=== PATIENT | male | born 1970 | race Two or more races ===

== ENCOUNTER 2021-03-29 18:01 | Emergency (ER) | payer SELFPAY ==
--- NOTE | 2021-03-29 18:50 | EDM.PDOC ---
ED HPI GENERAL MEDICAL PROBLEM - General Chief Complaint: Cardiovascular Problem Stated Complaint: [facility] Time Seen by Provider: 03/29/21 18:08 Source of Information: Reports: Patient, EMS, Other (Sas Programmer Remote) History Limitations: Reports: Language Barrier - History of Present Illness INITIAL COMMENTS - FREE TEXT/NARRATIVE: Using our soap inspector were able to get in touch with the patient and figure out what was going on. Patient [place] [facility] and speaks only in Portuguese dialect. We had the heel sander rubber on the phone patient was brought in by ambulance after he felt lightheaded and dizzy and nauseated. He checked his blood pressure was elevated and therefore was brought in for evaluation. His blood pressure was somewhat elevated 170 on EMS arrival had an IV started and patient otherwise was not complaining of any major headache no double vision or blurry vision no chest pain or palpitations no shortness of breath or breathing problems no vomiting no diarrhea no burning pain or blood in the urine. Patient states he has been fairly healthy except for having diabetes. 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 Is been under more stress, has been away from his family, he is only been eating fast foods and processed foods, has not been exercising. He had an episode similar to this about a week ago. He has lisinopril 10 mg that he takes only as needed for high blood pressure and he took 2 when the ambulance arrived which would be 20 mg. Denies any lower extremity sound swelling no burning pain or blood in the urine no double vision blurry vision or blackout spots no smell or taste problems no swallowing difficulty. - Related Data Allergies Allergy/AdvReac Type Severity Reaction Status Date / Time No Known Allergies Allergy Verified 03/29/21 18:30 Home Meds: Home Meds lisinopriL [Lisinopril] 10 mg PO ASDIRECTED PRN 03/29/21 [History] Past Medical History Cardiovascular History: Reports: Hypertension Endocrine/Metabolic History: Reports: Diabetes, Type II Social & Family History - Tobacco Use Tobacco Use Status *Q: Never Tobacco User Second Hand Smoke Exposure: No - Recreational Drug Use Recreational Drug Use: No ED ROS GENERAL - Review of Systems Review Of Systems: See Below Constitutional: Reports: No Symptoms. Denies: Fever, Chills, Diaphoresis HEENT: Denies: Eye Discharge, Eye Pain Respiratory: Denies: Shortness of Breath, Cough Cardiovascular: Reports: Lightheadedness. Denies: Chest Pain, Dyspnea on Exertion, Palpitations, Syncope GI/Abdominal: Reports: Nausea. Denies: Abdominal Pain, Diarrhea, Vomiting : Denies: Dysuria, Frequency, Hematuria, Urgency Neurological: Reports: Dizziness. Denies: Headache, Numbness, Paresthesia, Tingling Psychiatric: Reports: Anxiety ED EXAM, GENERAL - Physical Exam Exam: See Below Exam Limited By: Language Barrier General Appearance: Alert, WD/WN, No Apparent Distress Eye Exam: Bilateral Eye: EOMI, PERRL Throat/Mouth: Normal Oropharynx Neck: Normal Inspection, Supple. No: Carotid Bruit Respiratory/Chest: No Respiratory Distress, Lungs Clear, Normal Breath Sounds Cardiovascular: Normal Peripheral Pulses, Regular Rate, Rhythm, No Edema, No JVD Peripheral Pulses: 2+: Radial (L), Radial (R), Posterior Tibial (L), Posterior Tibial (R) GI/Abdominal: Normal Bowel Sounds, Soft, Non-Tender, No Distention, No Mass Extremities: Normal Inspection, Non-Tender, No Pedal Edema Neurological: Alert, Oriented, CN II-XII Intact, No Motor/Sensory Deficits Psychiatric: Normal Affect, Anxious Skin Exam: Warm #1 Interpretation EKG Date: 03/29/21 Time: 18:06 Rhythm: NSR Rate (Beats/Min): 82 [place]: Normal ST-T: Normal (Reviewed EKG showing sinus rhythm rate of 82 AL 185 QRS is 101 QT corrected 425 normal EKG no acute findings.) Course - Vital Signs Text/Narrative:: Evaded blood pressure a lot of etiologies including lack of sleep lack of exercise poor diet, increasing stressors. There did not appear to be any acute endorgan symptomatology such as stroke syndrome cardiac chest pain no lower extremity swelling no urinary symptoms at this point do not feel any other work- up or evaluation indicated here in the department. We will monitor him after he took his to 10 mg lisinopril anticipate patient will be able to be discharged however spent a lot of time through the heel sander rubber discussing that he needs to try to work on changing his diet, increasing excessive size, try to sleep more regularly and establish primary care. Last Recorded V/S: Last Vital Signs Temp 97.5 F 03/29/21 18:07 Pulse 80 03/29/21 18:07 Resp 16 03/29/21 18:07 BP 143/101 H 03/29/21 18:07 Pulse Ox 97 03/29/21 18:07 - Orders/Labs/Meds Orders: Active Orders 24 hr Category Date Time Status EKG 12 Lead [EKG Documentation Completion] [RC] STAT Care 03/29/21 18:29 Active - Re-Assessments/Exams Free Text/Narrative Re-Assessment/Exam: 03/29/21 19:14 Blood pressure is improved pulse is 80 blood pressure 130/87 sats 90% on room air will discharge home Departure - Departure Time of Disposition: 19:20 Disposition: Home, Self-Care 01 Condition: Good Clinical Impression: Elevated blood pressure reading Instructions: Hypertension, Adult, [id number] Forms: ED Department Discharge Additional Instructions: Recommend establish a primary care physician for recheck evaluation continue to monitor your blood pressure only on occasion, you need to try to work on improving your diet eating less processed and salty foods, try to get more exercise try to get more regular sleep, avoid caffeine. Return if any chest pain headaches vision changes dizziness weakness or worsening. Sepsis Event Note (ED) - Evaluation Sepsis Screening Result: No Definite Risk - Focused Exam Vital Signs: Vital Signs Temp Pulse Resp BP Pulse Ox 03/29/21 18:07 97.5 F 80 16 143/101 H 97 - My Orders Last 24 Hours: My Active Orders 03/29/21 18:29 EKG 12 Lead [EKG Documentation Completion] [RC] STAT - Assessment/Plan Last 24 Hours: My Active Orders 03/29/21 18:29 EKG 12 Lead [EKG Documentation Completion] [RC] STAT
== END 2021-03-29 19:40 | disposition home or self-care (01) ==
LOC: JD.ED 18:01
DX: I10 Essential (primary) hypertension (principal); E11.9 Type 2 diabetes mellitus without complications; Z79.899 Other long term (current) drug therapy
CPT/HCPCS: 93005; 93010; 99283; 99284-25